=== PATIENT | female | born 1970 | race Caucasian/White ===

== ENCOUNTER → 2017-07-29 | Outpatient (CLI) | payer OTHER | LOC: MC.RAD 09:35 | DX: Z12.31 Encounter for screening mammogram for malignant neoplasm of breast (principal) ==

== ENCOUNTER → 2017-08-02 | Outpatient (CLI) | payer OTHER | LOC: COL.LAB 16:39 | DX: Z01.89 Encounter for other specified special examinations (principal) ==

== ENCOUNTER 2017-08-12 13:24 | Emergency (ER) | payer OTHER ==
[~2017-08-12] VITALS: Ht 157.5 cm; Wt 61.4 kg
[2017-08-12 13:29] VITALS: TEMP 97
[2017-08-12 13:58] LABS: BASO % 0.3 % (0.0-2.0); EOS # 0.2 (0.0-0.7); EOS % 1.7 % (0-4.0); GRAN # 11.7 (1.4-6.5); GRAN % 89.8 % (42.2-75.2); HEMOGLOBIN 12.3 g/dl (12.5-16.0); LYMPH # 0.7 (1.2-3.4); LYMPH % 5.2 % (20.0-51.0); MEAN CELL VOLUME 93 fl (80.0-100.0); MEAN CORPUSCULAR HEMOGLOBIN 31 pg (27.0-31.0); MEAN CORPUSCULAR HGB CONC 34 g/dl (33.0-37.0); MEAN PLATELET VOLUME 9.2 fl (7.4-10.4); MONO # 0.4 (0.1-0.6); MONO % 2.7 % (1.7-9.3); PLATELET COUNT 390 K/mm3 (130-400); RED BLOOD COUNT 3.92 M/mm3 (4.10-5.30); REDCELL DISTRIBUTION WIDTH-CV 12.4 % (11.5-14.5)
[2017-08-12 14:00] LABS: HEMATOCRIT 36.3 % (37.0-47.0)
[2017-08-12 14:01] LABS: ALANINE AMINOTRANSFERASE 26 U/L (9-52); ALBUMIN 4.4 gm/dL (3.5-5.0); ALKALINE PHOSPHATASE 48 U/L (50-136); ANION GAP 12 mmol/L (7-16); AST,SGOT 19 U/L (15-37); BILIRUBIN,TOTAL 0.3 mg/dL (0.0-1.0); BLOOD UREA NITROGEN 18 mg/dL (7-17); C-REACTIVE PROTEIN 4.4 mg/dL (0.0-0.9); CALCIUM 9.7 mg/dL (8.4-10.2); CARBON DIOXIDE 27 mmol/L (22-30); CHLORIDE 99 mmol/L (98-107); CREATININE, serum 0.87 mg/dL (0.52-1.25); GLUCOSE 157 mg/dL (74-106); LIPASE 95 U/L (23-300); SODIUM 137 mmol/L (137-145); TOTAL PROTEIN 7.7 gm/dL (6.4-8.2)
[2017-08-12] MEDS ORDERED: ARMOUR THYROID90 MG PO (14:10)
[2017-08-12] MEDS ORDERED: PREDNISONE20 MG PO (14:11)
[2017-08-12 14:12] LABS: TROPONIN-I < 0.012 ng/mL (0.000-0.034)
[2017-08-12] MEDS ORDERED: PROZAC 20MG20 MG PO (14:12)
[2017-08-12] MEDS ORDERED: NORCO 325 MG-51 TAB PO (14:12)
[2017-08-12 14:31] LABS: ERYTHROCYTE SEDIMENTATION RATE 33 mm/hr (0-20)
[2017-08-12] MEDS ORDERED: MITIGARE0.6 MG PO (15:16)
[2017-08-12 16:31] VITALS: BP 86/56; PULSE 67
== END 2017-08-12 16:35 | disposition home or self-care (01) ==
LOC: COL.ER 13:24
PROVIDERS: Emergency Medicine
DX: I31.3 Pericardial effusion (noninflammatory) (principal); I31.9 Disease of pericardium, unspecified; E03.9 Hypothyroidism, unspecified; Z98.890 Other specified postprocedural states; Z79.52 Long term (current) use of systemic steroids
CPT/HCPCS: J1170; J2060; J2405; J2930; J7030; J7050; Q9967

== ENCOUNTER → 2019-09-03 | Outpatient (CLI) | payer OTHER ==
[~2019-09-03] MED LIST: ARMOUR THYROID90 MG PO; MITIGARE0.6 MG PO; NORCO 325 MG-51 TAB PO; PREDNISONE20 MG PO; PROZAC 20MG20 MG PO
== END ==
LOC: MC.RAD 11:25
DX: Z12.31 Encounter for screening mammogram for malignant neoplasm of breast (principal)

== ENCOUNTER → 2022-05-08 | Outpatient (CLI) | payer OTHER | LOC: MC.RAD 08:51 | DX: Z12.31 Encounter for screening mammogram for malignant neoplasm of breast (principal) ==